=== PATIENT | female | born 1970 | race Caucasian/White ===

== ENCOUNTER 2018-09-02 23:21 | Emergency (ER) | payer MEDICAID ==
[~2018-09-02] VITALS: Ht 157.5 cm; Wt 67.4 kg
[2018-09-02 23:25] VITALS: Ht 157.5 cm; Wt 67.4 kg
[2018-09-02] MEDS ORDERED: ACETAMINOPHEN 325 MG TAB PO STA (23:37)
[2018-09-02] MEDS ORDERED: SODIUM CHLORIDE 0.9% 1L BAG IV* STA (23:37)
[2018-09-02] MEDS ORDERED: PIPER-TAZO 3.375 GM IV (PMX) 100 ML IVPB STA (23:37)
[2018-09-02] MEDS ORDERED: morphine 4 MG/ML VIAL IV STA (23:42)
[2018-09-02] MEDS ORDERED: ONDANSETRON 4 MG INJ IV STA (23:42)
--- NOTE | 2018-09-03 01:41 | ERD ---
ER Documentation Chief Complaint Chief Complaint abdominal pain since yesterday HPI During the patient's encounter translation services were utilized Language: Khmer Source: Family 48-year-old female presents to the emergency room with approximately 1 day of left lower quadrant abdominal pain that is 8 out of 10 with associated fever. No nausea or vomiting, diarrhea or constipation. No dysuria urgency or frequency. No recent travel sick contacts or antibiotics. The patient describes persistent pain and noted fever today. ROS All systems reviewed and are negative except as per history of present illness. Medications Home Meds Active Scripts Ondansetron (Ondansetron Odt) 4 Mg Tab.rapdis, 4 MG PO Q6H PRN for NAUSEA AND/OR VOMITING, #10 TAB Prov:INOCENCIA DOE MD 09/03/18 Dicyclomine HCl (Dicyclomine HCl) 10 Mg Capsule, 10 MG PO TID PRN for ABDOMINAL CRAMPING, #20 CAP Prov:INOCENCIA DOE MD 09/03/18 Ibuprofen* (Motrin*) 800 Mg Tab, 800 MG PO Q6H PRN for PAIN AND OR ELEVATED TEMP, #30 TAB Prov:INOCENCIA DOE MD 09/03/18 Allergies Allergies: Coded Allergies: No Known Drug Allergies (Verified Allergy, Unknown, 09/02/18) PMhx/Soc History of Surgery: Yes () Anesthesia Reaction: No Hx Neurological Disorder: No Hx Respiratory Disorders: No Hx Cardiac Disorders: No Hx Psychiatric Problems: No Hx Miscellaneous Medical Probl: No Hx Alcohol Use: Yes (rarely) Hx Substance Use: No Hx Tobacco Use: No Smoking Status: Never smoker FmHx Family History: No diabetes Physical Exam Vitals Vital Signs Date Temp Pulse Resp B/P (MAP) Pulse Ox O2 O2 Flow FiO2 Time Delivery Rate 09/03/18 103 20 109/74 98 Room Air 03:30 (86) 09/03/18 103 21 103/66 97 Room Air 03:00 (78) 09/03/18 107 26 107/69 97 Room Air 02:30 (82) 09/03/18 109 26 119/73 98 Room Air 02:00 (88) 09/03/18 113 25 118/76 99 Room Air 01:30 (90) 09/03/18 104 26 111/76 98 Room Air 01:16 (88) 09/03/18 99.3 107 25 118/81 97 Room Air 00:32 (93) 09/03/18 99.3 00:31 09/03/18 109 26 125/81 98 Room Air 00:00 (96) 09/02/18 102.1 23:48 09/02/18 102.1 110 20 128/69 98 23:25 (88) Physical Exam General: Slightly uncomfortable Head: Normocephalic, atraumatic. Eyes: Pupils equally reactive, EOM intact ENT: Moist mucous membranes Neck: Supple, no lymphadenopathy Respiratory: Lungs clear bilaterally, no distress Cardiovascular: tachy, no murmurs, rubs, or gallops Abdominal: Soft, mild tenderness to the left lower quadrant without rebound or guarding, no tenderness to McBurney's point, negative Thomas sign : Deferred MSK: No edema, no unilateral swelling, 5/5 strength Neurologic: Alert and oriented, moving all extremities, normal speech, no focal weakness, no cerebellar signs Skin: No rash Psych: Normal mood Result Diagram: 09/02/18 2335 09/02/18 2335 Results 24 hrs Laboratory Tests Test 09/02/18 23:35 09/02/18 23:37 09/03/18 00:56 09/03/18 01:24 White Blood Count 12.8 10^3/ul Red Blood Count 4.49 10^6/ul Hemoglobin 12.7 g/dl Hematocrit 37.7 % Mean Corpuscular 84.0 fl Volume Mean Corpuscular 28.3 pg Hemoglobin Mean Corpuscular 33.7 g/dl Hemoglobin Concent Red Cell Distribution 12.7 % Width Platelet Count 319 10^3/UL Mean Platelet Volume 8.5 fl Immature Granulocytes 0.500 % % Neutrophils % 83.7 % Lymphocytes % 10.8 % Monocytes % 4.5 % Eosinophils % 0.2 % Basophils % 0.3 % Nucleated Red Blood 0.0 /100WBC Cells % Immature Granulocytes 0.070 10^3/ul # Neutrophils # 10.7 10^3/ul Lymphocytes # 1.4 10^3/ul Monocytes # 0.6 10^3/ul Eosinophils # 0.0 10^3/ul Basophils # 0.0 10^3/ul Nucleated Red Blood 0.0 10^3/ul Cells # Prothrombin Time 12.9 Sec Prothrombin Time 1.0 Ratio INR International 0.96 Normalized Ratio Activated 27.7 Sec Partial Thromboplast Time Sodium Level 138 mmol/L Potassium Level 3.4 mmol/L Chloride Level 101 mmol/L Carbon Dioxide Level 24 mmol/L Anion Gap 13 Blood Urea Nitrogen 9 mg/dl Creatinine 0.66 mg/dl Est Glomerular > 60 mL/min Filtrat Rate mL/min Glucose Level 133 mg/dl Calcium Level 9.0 mg/dl Total Bilirubin 0.2 mg/dl Direct Bilirubin 0.00 mg/dl Indirect Bilirubin 0.2 mg/dl Aspartate Amino 30 IU/L Transf (AST/SGOT) Alanine 50 IU/L Aminotransferase (ALT /SGPT) Alkaline Phosphatase 117 IU/L Troponin I < 0.012 ng/ml Total Protein 8.2 g/dl Albumin 4.5 g/dl Globulin 3.70 g/dl Albumin/Globulin 1.21 Ratio Lipase 43 U/L POC Venous Lactate 1.1 mmol/L POC Beta HCG, NEGATIVE Qualitative Lactic Acid Level 1.9 mmol/L Test 09/03/18 03:00 Urine Color COLORLESS Urine Clarity CLEAR Urine pH 7.0 Urine Specific 1.006 Anita Urine Ketones NEGATIVE mg/dL Urine Nitrite NEGATIVE mg/dL Urine Bilirubin NEGATIVE mg/dL Urine Urobilinogen NEGATIVE mg/dL Urine Leukocyte NEGATIVE Linnea/ul Esterase Urine Microscopic RBC 4 /HPF Urine Microscopic WBC 1 /HPF Urine Hemoglobin 2+ mg/dL Urine Glucose NEGATIVE mg/dL Urine Total Protein NEGATIVE mg/dl Current Medications Medications Dose Sig/Ananya Start Time Status Last (Trade) Ordered Route PRN Stop Time Admin Dose Reason Admin Sodium 2,020 ml BOLUS OVER 2 09/02/18 DC 09/02/18 Chloride HOURS STAT 23:37 09/02/18 23:44 (NS) IV* 23:39 650 mg ONCE STAT 09/02/18 DC 09/02/18 Acetaminophen PO 23:37 09/02/18 23:48 (Tylenol 23:39 Tab) Piperacillin 100 ml @ ONCE STAT 09/02/18 DC 09/02/18 Sod/ 200 mls/hr IVPB 23:37 09/03/18 23:47 Tazobactam 00:06 Sod Morphine 4 mg ONCE STAT 09/02/18 DC 09/02/18 Sulfate IV 23:42 09/02/18 23:47 (morphine) 23:43 Ondansetron 4 mg ONCE STAT 09/02/18 DC 09/02/18 HCl (Zofran IV 23:42 09/02/18 23:47 Inj) 23:43 Procedures/MDM EKG, MONITORS, & DIAGNOSTIC IMAGING: EKG: I reviewed and interpreted a 12-lead EKG. Rhythm: Normal sinus rhythm ST Changes: No contiguous ST segment elevations T waves: No contiguous T wave inversions Impression: No evidence of acute cardiac ischemia Chest x-ray: I reviewed and interpreted a 1 view of the chest Mediastinum: No enlargement Cardiac silhouette: No cardiomegaly Airspace: Clear lung barry bilaterally without evidence of pneumothorax Bones: No evidence of fracture CT abdomen and pelvis: IMPRESSION: 1. Diffuse hepatic steatosis with an elongated left hepatic lobe. 2. Moderate to punctate nonobstructing right renal stones. No hydronephrosis. 3. Small leiomyoma anterior lower uterine segment. 4. Minimal free fluid the posterior cul-de-sac, age appropriate. LAB INTERPRETATION: I reviewed the laboratory testing and it shows normal lactic acid MEDICAL DECISION MAKING: The patient has Sirs criteria with left lower quadrant abdominal pain. Her clinical exam and history is somewhat concerning for acute diverticulitis. Patient will benefit from CT imaging. Low concern for acute ovarian process. No localization of the right side of the abdomen therefore low clinical concern for acute appendicitis, perforation, acute cholecystitis. Code sepsis was initiated given findings of Sirs and possible source of infection. Lactic acid reassuring. Empiric antibiotics provided after blood culture. 30 cc/kg bolus of saline provided. ER COURSE: * The patient's vital signs have normalized. She is feeling much better. Her laboratory testing and diagnostic imaging is unrevealing for etiology of fever and abdominal pain. * This is possibly a viral process. Consider early gastroenteritis. At this point the patient has no signs or symptoms that warrant hospitalization. The patient can be discharged with symptom control. No medications of bacterial infection and antibiotics unlikely to be helpful in the setting. CONSULTATION: None DISPOSITION PLAN: The patient does not have an identifiable emergent medical condition that warrants inpatient hospitalization at this time. The patient is deemed safe for discharge with outpatient follow-up. We discussed follow up with the patient's primary care doctor within 24 to 48 hours as needed. We also discussed return to the emergency room for worsening symptoms or worsening condition. Outpatient referral: None required Discharge Medications: Zofran, Bentyl, Motrin Departure Diagnosis: Primary Impression: Abdominal pain Abdominal location: generalized Qualified Codes: R10.84 - Generalized abdominal pain Additional Impression: Fever Fever type: unspecified Qualified Codes: R50.9 - Fever, unspecified Condition: Stable INOCENCIA DOE MD September 03, 2018 01:41
[2018-09-03] MEDS ORDERED: DICY10CA40 PO (04:14)
[2018-09-03] MEDS ORDERED: ONDA4TAB14 PO (04:14)
[2018-09-03] MEDS ORDERED: IBUP800T48 PO (04:14)
[2018-09-03 04:21] VITALS: BP 109/78; PULSE 98; RESP 81
== END 2018-09-03 04:23 | disposition home or self-care (01) ==
LOC: E/R 23:21
DX: R10.32 Left lower quadrant pain (principal); R50.9 Fever, unspecified
CPT/HCPCS: 36415; 71045; 74176; 80053; 81001; 81025; 83605; 83690; 84484; 85025; 85610; 85730; 87040; 87086; 93005; 96361; 96365; 96375; J2270; J2405; J2543; J7030; Z7502; Z7610